=== PATIENT | male | born 1995 | race Caucasian/White ===

== ENCOUNTER 2024-12-15 13:07 | Emergency (ER) | payer BC, SELFPAY ==
[2024-12-15 13:14] VITALS: BP 137/86; PULSE 101; RESP 16; TEMP 36.4; O2SAT 99
--- NOTE | 2024-12-15 13:21 | ED_ITS ---
HPI - Animal Bite General Chief Complaint: Wound/Laceration Stated Complaint: bite on left leg Time Seen by Provider: 12/15/24 13:22 Source: patient Mode of arrival: ambulatory Limitations: no limitations History of Present Illness HPI narrative: [age] year old male presented for complaint of a red round wound to the left lower leg. Onset about 1 week ago. Endorses possible spider bite. He said 2 days ago he squeezed it and expelled yellow drainage. No other treatments. Denies any other skin concerns or changes. Denies nausea, vomiting, fevers or chills. Related Data Allergies Allergy/AdvReac Type Severity Reaction Status Date / Time No Known Allergies Allergy Verified 12/15/24 13:20 Review of Systems Review of Systems: CONSTITUTIONAL: Denies body aches, fever, chills, or sweats. EYES: Denies visual changes, redness, or discharge. ENT: Denies rhinorrhea, congestion CARDIOVASCULAR: Denies chest pain, palpitations, or edema. RESPIRATORY: Denies cough or dyspnea. GASTROINTESTINAL: Denies abdominal pain, nausea, vomiting, or diarrhea. SKIN: per HPI MUSCULOSKELETAL: Denies back pain, joint pain, or myalgia. NEUROLOGIC: Denies headache, numbness, tingling, or weakness. [facility] Family History Family History (Updated 05/21/18 @ 16:56 by DOCTOR UNKNOWN) Other Diabetes mellitus Family history of mental disorder Hypertension Social History Social History Smoking status: Heavy tobacco smoker Alcohol intake: current Comments At time of signature, I have reviewed and agree with nursing past medical, surgical, social and family history unless otherwise noted. Please see nursing chart for further information. There is no relevant family history pertinent to the presenting complaint Exam Narrative: GENERAL: Well-appearing EYES: conjunctivae clear, and EOMI. ENT: Mucous membranes moist. Oropharynx without edema, erythema or lesions. NECK: Supple. No lymphadenopathy CHEST: Clear to auscultation. HEART: Regular rate and rhythm. SKIN: Warm, dry. left lower leg with 2 cm circular bright red, center with pinpoint scab, surrounding mildly erythematous area of 5 cm. Tender, no fluctuance or active drainage. No streaking. NEURO: Alert and oriented x3. Course Course Emergency Course: Patient is aware of diagnosis, understands and agrees to treatment plan. Anticipatory guidance given. Patient agrees to follow-up as directed and is aware of reasons to seek care at the emergency department. Portions of this record may have been created with voice recognition software Level of Care: Express Care Visit Vital Signs Vital signs: Vital Signs Temperature 97.5 F L 12/15/24 13:14 Pulse Rate 101 H 12/15/24 13:14 Respiratory Rate 16 12/15/24 13:14 Blood Pressure 137/86 12/15/24 13:14 Pulse Oximetry 99 12/15/24 13:14 Oxygen Delivery Room Air 12/15/24 13:14 Temperature 97.5 F L 12/15/24 13:14 Pulse Rate 101 H 12/15/24 13:14 Respiratory Rate 16 12/15/24 13:14 Blood Pressure 137/86 12/15/24 13:14 Pulse Oximetry 99 12/15/24 13:14 Oxygen Delivery Room Air 12/15/24 13:14 Reviewed MDM - Animal Bite MDM Narrative Medical decision making narrative: Discussed physical exam findings consistent with abscess to the left lower leg. Site is firm with no fluctuance or indication for I and D. Shared decision lorena trinh. Rx antibiotic. Advised supportive measures and signs/symptoms to go to the ER. Pt is appropriate for outpt treatment and f/u. Differential Diagnosis Differential diagnosis: Likely other ( Abscess, abrasion, insect bite, impetigo, cellulitis) Discharge Plan Discharge Clinical Impression: Abscess Patient Disposition: Home Condition: Stable Instructions: Antibiotic Form, Abscess (ED) Additional Instructions: Cleanse site with warm soapy water at least daily Warm compresses (warm wet wash cloth) at least 4 times a day to the site to help expel any additional drainage. Keep your wound covered while draining Take antibiotic as directed; recommend taking a probiotic such as lactobacillus or Align, or activia yogurt as the antibiotic can be harsh on the gut Tylenol and ibuprofen every 8 hours for pain as needed Follow up with your primary care physician in 2-3 days for a wound check. Go to the Emergency Department immediately if you develop any of the following symptoms: Fevers, Increased redness, pain, or swelling around where your abscess was, generalized weakness or vomiting or any other concerns Patient Language: Ethiopian Prescriptions: New clindamycin HCl [Cleocin HCl] 300 mg capsule 300 mg PO Q8H 7 Days Qty: 21 0RF Follow-up/Referrals: PHYSICIAN,FERMENTING CELLARS SUPERVISOR [Primary Care Provider] - Time of Disposition: 13:28
--- OUTSIDE RECORDS SUMMARY | 2024-12-15 14:38 | XMS_ITS | Clinical Summary ---
Author Organization [facility] Address [address] [place] [address] Care Team Providers Care Cost Clerk Name Role Phone Unavailable Primary Care Provider Unavailabl e Source Comments [facility],non-owned Affiliates and Associated Physician Practices is amultiple site organization consisting of ambulatory clinics and hospital sitesin [place], [place], [place] and [place]. This disclosure is being madepursuant to the Care Everywhere program and may not contain all information available regarding this patient. Last updated 18.[facility] Allergies No known active allergies Medications * Be aware that medications may not be up to date on this document. Alwaysverify current medications with the patient. Medication Sig Dispensed Refills Start Date End Date Status ibuprofen (MOTRIN) 400 MG tablet Take 1 Tab by mouth every 6 hours as needed for Pain. 30 Tab 0 01/30/2011 Active acetaminophen-codeine (TYLENOL #3) 300-30 MG tablet Take 2 Tabs by mouth every 4 hours as needed for Pain. 28 Tab 0 01/30/2011 Active Social History Tobacco Use Types Packs/Day Years Used Date Smoking Tobacco: Every Day Cigarettes 1 3 Tobacco Cessation:Ready to Q uit: Yes; Counseling Given: No Comments:dad said he is going to quit did not want any cessation information Alcohol Use Standard Drinks/Week Comments No 0 (1 standard drink = 0.6 oz pur e alcohol) Sex and Gender Information Value Date Recorded Sex Assigned at Not on file Gender Identity Not on file Sexual Orientation Not on file Last Filed Vital Signs Vital Sign Reading Time Taken Comments Blood Pressure 138/84 01/29/2011 11:46 PM CDT Pulse 64 01/30/2011 1:56 AM CDT Temperature 37 C (98.6 F) 01/29/2011 11:46 PM CDT Respiratory Rate 12 01/30/2011 1:56 AM CDT Oxygen Saturation 99% 01/30/2011 1:56 AM CDT Inhaled Oxygen Concentration - - Weight 65.5 kg (144 lb 6.4 oz) 01/29/2011 11:46 PM CDT Height - - Body Mass Index - - Plan of Treatment Health Maintenance Due Date Last Done Comments HIV SCREENING 2010 HEPATITIS C SCREENING 05/04/2013 DTAP/TDAP/TD VACCINES (1 - Tdap) 2014 HEPATITIS B VACCINE (1 of 3 - 19+ 3-dose series) 2014 COVID-19 VACCINE ( - 2023-2 5 season) 2024 DEPRESSION SCREENING 09/08/2024 INFLUENZA VACCINE (Season Ended) 2025 ZOSTER VACCINE (1 of 2) 2045 HIB VACCINE Aged Out No longer eligi ble based on patient's age to complete this topic HPV VACCINE Aged Out No longer eligi ble based on patient's age to complete this topic MENINGOCOCCAL (Group B) VACC INE SHARED DECISION-MAKING Aged Out No longer eligibl e based on patient's age to complete this topic MENINGOCOCCAL GROUPS A/C/Y/W VACCINE Aged Out No longer eligible b ased on patient's age to complete this topic PNEUMOCOCCAL VACCINE Aged Out No long er eligible based on patient's age to complete this topic
--- OUTSIDE RECORDS SUMMARY | 2024-12-15 14:38 | XMS_ITS | Clinical Summary ---
Author Organization [facility] Address [address] [place] [address] Phone Care Team Providers Care Roping Tender Name Role Phone Provider, None Primary Care Provider Unavailabl e Allergies No known active allergies Medications albuterol (PROVENTIL HFA, VENTOLIN HFA) 108 (90 Base) MCG/ACT Aerosol Solution take 2 Puffs by inhalation every 6 hours as needed for Wheezing. 1 Inhaler 8 Active predniSONE (DELTASONE) 20 MG Tablet Use as directed. 15 Tab 8 Active Social History Tobacco Use Types Packs/Day Years Used Date Smoking Tobacco: Every Day Cigarettes Smokeless Tobacco: Never Sex and Gender Information Value Date Recorded Sex Assigned at Not on file Legal Sex Male 11:18 PM CDT Gender Identity Not on file Sexual Orientation Not on file Last Filed Vital Signs Vital Sign Reading Time Taken Comments Blood Pressure 138/89 09/18/2017 2:13 PM BALANCE ENGINEER Pulse 91 09/18/2017 12:48 PM BALANCE ENGINEER Temperature 36.7 C (98.1 F) 09/18/2017 12:48 PM BALANCE ENGINEER Respiratory Rate 18 09/18/2017 1:22 PM BALANCE ENGINEER Oxygen Saturation 97% 09/18/2017 1:22 PM BALANCE ENGINEER Inhaled Oxygen Concentration - - Weight 84.8 kg (187 lb) 09/18/2017 12:48 PM BALANCE ENGINEER Height 170.2 cm (5' 7 ) 09/18/2017 12:48 PM BALANCE ENGINEER Body Mass Index 29.29 09/18/2017 12:48 PM BALANCE ENGINEER Plan of Treatment Health Maintenance Due Date Last Done Comments Hepatitis C Virus (HCV) Screening 1995 TdaP Immunization 1995 Hepatitis B Immunization (1 of 3 - 19+ 3-dose series) 2014 Influenza Immunization (#1) 2024 SARS-COV-2 Immunization (2023- season) 2024 Respiratory Syncytial Virus (RSV) Immunization (Adult) (1 - 1-dose 75+ series) 2070 Meningococcal Immunization (ACWY) Aged Out No longer eligible based on patient's age to complete this topic Pneumococcal Immunization Combined Aged Out No longer eligible based on patient's age to complete this topic Rotavirus Immunization Aged Out No lo nger eligible based on patient's age to complete this topic Insurance [facility] Care Teams Roping Tender Relationship Specialty Start Date End Date Provider, None [place] PCP - General 09/18/17
--- OUTSIDE RECORDS SUMMARY | 2024-12-15 14:38 | XMS_ITS | CONTINUITY OF CARE DOCUMENT ---
Author Name lila sharp Address Unknown Organization [facility] Address [address] [place] [address] Phone [phone] Care Team Providers Care Superintendent Construction Name Role Phone lila sharp Unavailable Unavailable INSURANCE PROVIDERS Payer name Policy type / Coverage type [place] red libertarian ID [employer] OPEN ACCESS Other [id number]
== END 2024-12-15 13:34 | disposition home or self-care (01) ==
PROVIDERS: Emergency Provider Nurse Practitioner Family
DX: L02.416 Cutaneous abscess of left lower limb (principal); F17.200 Nicotine dependence, unspecified, uncomplicated
CPT/HCPCS: 99213; G0463

== ENCOUNTER 2024-12-31 14:32 | Emergency (ER) | payer BC, SELFPAY ==
--- NOTE | 2024-12-31 14:34 | ED.SKABFB ---
HPI - Skin/Abscess/Foreign Bdy General Chief complaint: Wound/Laceration Stated complaint: spider bite Time Seen by Provider: 12/31/24 14:33 Source: patient Mode of arrival: ambulatory Limitations: no limitations History of Present Illness HPI narrative: Bon is a 29-year-old male patient presenting to the clinic today with complaints of a possible spider bite to his left lower leg. He reports he was seen on December 15 and given prescription for clindamycin but has not taken the antibiotic as directed. States he forgets to take it at times. Has 1 more dose. He reports the area has gone down and swelling and is mildly painful. Does have a scabbed over center Related Data Home Medications ?Medication ?Instructions ?Recorded ?Confirmed ?Last Taken ?Type clindamycin HCl 300 mg capsule mg 12/31/24 Unknown History Allergies Allergy/AdvReac Type Severity Reaction Status Date / Time No Known Allergies Allergy Verified 12/31/24 14:45 Review of Systems Review of Systems: Pertinent positives per HPI. Patient denies any fever, chills, rash, headache, visual changes, dizziness, cough, runny nose, sore throat, shortness of breath, chest pain, palpitations, nausea, vomiting, diarrhea, constipation, abdominal pain, or any urinary issues. PMFSH Family History Family History Other Diabetes mellitus Family history of mental disorder Hypertension Social History Social History Smoking status: Heavy tobacco smoker Alcohol intake: current Comments At the time of my signature, I reviewed and agree with the nursing past medical, surgical, social, and family history. There is no relevant family history pertinent to the patient complaint. Exam Narrative: General: Well-developed, well nourished, in no apparent distress Head: Normocephalic, atraumatic. Cardio: Regular rate and rhythm, s1 and s2 normal, no murmur appreciated. Resp: Clear to auscultation bilaterally, no rhonchi, rales, wheezing or rubs. Integumentary: [place], warm, and dry, small nontender bacterial infection/nonfluctuant abscess to the left lateral leg with mild induration measuring 2 cm x 1.5 cm. Course Course Emergency Course: Portions of this record may have been created with voice recognition software. Level of Care: Express Care Visit Vital Signs Vital signs: Vital Signs Temperature 35.5 C L 12/31/24 14:37 Pulse Rate 89 12/31/24 14:37 Respiratory Rate 14 12/31/24 14:37 Blood Pressure 155/90 H 12/31/24 14:37 Pulse Oximetry 100 12/31/24 14:37 Oxygen Delivery Room Air 12/31/24 14:37 Temperature 35.5 C L 12/31/24 14:37 Pulse Rate 89 12/31/24 14:37 Respiratory Rate 14 12/31/24 14:37 Blood Pressure 155/90 H 12/31/24 14:37 Pulse Oximetry 100 12/31/24 14:37 Oxygen Delivery Room Air 12/31/24 14:37 Vital signs reviewed MDM - Skin/Abscess/Foreign Bdy MDM Narrative Medical decision making narrative: At the time of visit patient is resting comfortably on the exam table. Patient appears to be nontoxic. Plan: I suspect patient still has skin infection/resolving abscess. He has been not compliant with his antibiotic use. Will prescribe mupirocin cream and have him finish the clindamycin as prescribed. Supportive measures were discussed with the patient and they voiced understanding discharge instructions and agrees to treatment plan. Return precautions reviewed Differential Diagnosis Differential diagnosis: Likely abscess of skin or subcutaneous tissue, viral exanthem, dermatophytosis, urticaria, herpes zoster, allergic reaction to drug, cellulitis, eczema, insect bites, impetigo and contact dermatitis Discharge Plan Discharge Clinical Impression: Bacterial skin infection Patient Disposition: Home Condition: Stable Instructions: Antibiotic Form, Abscess (ED) Additional Instructions: Finish the antibiotics as prescribed Apply mupirocin cream to the affected area twice daily x7 days Follow-up with your primary care doctor Patient Language: Bahraini Prescriptions: New mupirocin [Centany] 2 % ointment 1 applic topical BID 7 Days Qty: 22 0RF No Action clindamycin HCl 300 mg capsule Follow-up/Referrals: UNKNOWN,DOCTOR [Primary Care Provider] - Time of Disposition: 14:48 Quality NIHSS Nursing Documentation ED NIHSS nursing documentation: reviewed/agree
--- OUTSIDE RECORDS SUMMARY | 2024-12-31 14:34 | XMS_ITS | Clinical Summary ---
Author Organization [facility] Address [address] [place] [address] Phone Care Team Providers Care Manager Line Name Role Phone Provider, None Primary Care [...] Comments Blood Pressure 138/89 09/18/2017 2:13 PM RAIL SPECIALIST Pulse 91 09/18/2017 12:48 PM RAIL SPECIALIST Temperature 36.7 C (98.1 F) 09/18/2017 12:48 PM RAIL SPECIALIST Respiratory Rate 18 09/18/2017 1:22 PM RAIL SPECIALIST Oxygen Saturation 97% 09/18/2017 1:22 PM RAIL SPECIALIST Inhaled Oxygen Concentration - - Weight 84.8 kg (187 lb) 09/18/2017 12:48 PM RAIL SPECIALIST Height 170.2 cm (5' 7 ) 09/18/2017 12:48 PM RAIL SPECIALIST Body Mass Index 29.29 09/18/2017 12:48 PM RAIL SPECIALIST Plan of Treatment Health Maintenance Due Date [...] patient's age to complete this topic Insurance [facility] Care Teams Manager Line Relationship Specialty Start Date End Date Provider, None [place] PCP - General 09/18/17
--- OUTSIDE RECORDS SUMMARY | 2024-12-31 14:34 | XMS_ITS | Clinical Summary ---
Author Organization [facility] Address [address] [place] [address] Care Team Providers Care Mold Stacker Name Role Phone Unavailable Primary Care Provider Unavailabl e Source Comments [facility],non-owned Affiliates and Associated Physician Practices is amultiple site organization consisting of ambulatory clinics and hospital sitesin [place], [place], [place] and [place]. This disclosure is being madepursuant to the Care Everywhere program and may not contain all information available regarding this patient. Last updated 18.[facility] Allergies No known active allergies Medications * Be aware that medications may not be up to date on this document. Alwaysverify current medications with the patient. ibuprofen (MOTRIN) 400 MG tablet Take 1 Tab by mouth every 6 hours as needed for Pain. 30 Tab 0 01/30/2011 Active acetaminophen-co deine (TYLENOL #3) 300-30 MG tablet Take 2 [...] at Not on file Legal Sex Male 11:48 AM SHERIFFS DETECTIVE Gender Identity Not on file Sexual Orientation [...]
[2024-12-31 14:37] VITALS: BP 155/90; PULSE 89; RESP 14; TEMP 35.5; O2SAT 100
--- OUTSIDE RECORDS SUMMARY | 2024-12-31 14:40 | XMS_ITS | CONTINUITY OF CARE DOCUMENT ---
Author Name lila sharp Address Unknown Organization [facility] Address [address] [place] [address] Phone [phone] Care Team Providers Care Certified Ophthalmic Technician Name Role Phone lila sharp Unavailable Unavailable INSURANCE PROVIDERS Payer name Policy type / Coverage type [place] red alliance party ID [employer] OPEN ACCESS Other [id number]
== END 2024-12-31 14:56 | disposition home or self-care (01) ==
PROVIDERS: Emergency Provider Nurse Practitioner Family
DX: L08.9 Local infection of the skin and subcutaneous tissue, unspecified (principal); B96.89 Other specified bacterial agents as the cause of diseases classified elsewhere; F17.200 Nicotine dependence, unspecified, uncomplicated
CPT/HCPCS: 99213; G0463

== ENCOUNTER 2025-09-07 12:40 | Emergency (ER) | payer BC, SELFPAY ==
[2025-09-07 12:44] VITALS: BP 151/83; PULSE 98; RESP 20; TEMP 37.1; O2SAT 98
--- NOTE | 2025-09-07 13:02 | ED.SKABFB ---
HPI - Skin/Abscess/Foreign Bdy General Chief complaint: Skin/Abscess/Foreign Body Stated complaint: bite on left leg Time Seen by Provider: 09/07/25 12:54 Source: patient and RN notes reviewed Mode of arrival: ambulatory Limitations: no limitations History of Present Illness HPI narrative: 30-year-old male patient presents today with redness and swelling to the left anterior thigh x5 days as been worsening since onset. Believes he has an ingrown hair or spider bite. States he has had something similar twice in the last few months. No OTC treatment prior to arrival. Related Data Allergies Allergy/AdvReac Type Severity Reaction Status Date / Time No Known Allergies Allergy Verified 09/07/25 12:49 PMFSH Family History Family History Other Diabetes mellitus Family history of mental disorder Hypertension Social History Social History Smoking status: Heavy tobacco smoker Alcohol intake: current Comments At time of signature, I have reviewed and agree with nursing past medical, surgical, social and family history unless otherwise noted. Please see nursing chart for further information. There is no relevant family history pertinent to the presenting complaint Exam Narrative: GENERAL: Well-appearing, well-nourished, and in no acute distress. HEAD: Normocephalic, atraumatic. EYES: EOMI. No redness or drainage. Conjunctivae normal. ENT: Mucous membranes pink and moist. NECK: Normal AROM. CHEST: No respiratory distress. EXTREMITIES: left thigh: 4 x 3 cm area of erythema and induration with a small pustule in the center, surrounded by 12 by 7 cm area of erythema without induration. No red streaking. No drainage. Tender to palpation. SKIN: Warm, dry, no rash. Capillary refill normal. Normal skin turgor. NEURO: No focal deficits. Alert and oriented x3. Gait steady. PSYCH: Normal affect. No signs of depression or anxiety. Course Course Level of Care: Express Care Visit Vital Signs Vital signs: Vital Signs Temperature 98.7 F 09/07/25 12:44 Pulse Rate 98 09/07/25 12:44 Respiratory Rate 20 09/07/25 12:44 Blood Pressure 151/83 H 09/07/25 12:44 Pulse Oximetry 98 09/07/25 12:44 Oxygen Delivery Room Air 09/07/25 12:44 Temperature 98.7 F 09/07/25 12:44 Pulse Rate 98 09/07/25 12:44 Respiratory Rate 20 09/07/25 12:44 Blood Pressure 151/83 H 09/07/25 12:44 Pulse Oximetry 98 09/07/25 12:44 Oxygen Delivery Room Air 09/07/25 12:44 Reviewed Procedures Abscess I/D left thigh: Date of Incision: 09/07/25 Time of Incision: 13:00 Side (if applicable): left Local Anesthetic: lidocaine 1% Amount of anesthesia used (mL): 2 Technique: incised with #11 blade Amount of fluid expressed (mL): 0 Irrigation: No Packing used?: none I&D Results: Blood Abcess I&D Additional Comments: No purulent discharge resulting. Patient tolerated procedure well MDM MDM Narrative Medical decision making narrative: 30-year-old male patient presents today with redness and swelling to the left anterior thigh x5 days as been worsening since onset. Believes he has an ingrown hair or spider bite. States he has had something similar twice in the last few months. No OTC treatment prior to arrival. Upon exam,4 x 3 cm area of erythema and induration with a small pustule in the center, surrounded by 12 by 7 cm area of erythema without induration. No red streaking. No drainage. Tender to palpation. Area lanced without any purulent discharge resulting. Dressed with Band-Aid. See procedure note. As patient states he has had several lesions like this in the past few months, will treat him with clindamycin to cover for MRSA. Patient agrees with plan. Vital signs stable. Anticipatory guidance given. Differential Diagnosis Differential Diagnosis: Folliculitis, abscess, cellulitis Critical Care Time Critical Care Time Critical Care Time: No Discharge Plan Discharge Clinical Impression: Cellulitis Qualifiers: Site of cellulitis: extremity Site of cellulitis of extremity: lower extremity Laterality: left Qualified Code(s): L03.116 - Cellulitis of left lower limb Patient Disposition: Home Condition: Stable Instructions: Antibiotic Form, Cellulitis (ED) Additional Instructions: Please take the clindamycin as prescribed until gone. Wash the area with soap and water daily and keep covered until scabbed over. Follow-up with your PCP in 3 days if symptoms are not improving. Patient Language: Botswanan Prescriptions: New clindamycin HCl 300 mg capsule 300 mg PO TID 7 Days Qty: 21 0RF Follow-up/Referrals: PHYSICIAN,FILM OR TAPE LIBRARIAN [Primary Care Provider, Internal Medicine] Time of Disposition: 13:17
[2025-09-07] MEDS: LIDOCAINE 1% LOCAL INJ 2 ML AMPUL 4 ML INFILTRATE (13:04)
== END 2025-09-07 13:21 | disposition home or self-care (01) ==
PROVIDERS: Emergency Provider Nurse Practitioner
DX: L03.116 Cellulitis of left lower limb (principal); E11.9 Type 2 diabetes mellitus without complications; I10 Essential (primary) hypertension; F17.210 Nicotine dependence, cigarettes, uncomplicated
CPT/HCPCS: 10060; 99213; G0463; J2003